=== PATIENT | female | born 1980 | race Caucasian/White ===

== ENCOUNTER 2017-03-12 04:09 | Emergency (ER) | payer SELFPAY ==
[~2017-03-12] VITALS: Ht 154.9 cm; Wt 103.4 kg
[~2017-03-12 04:09] MED LIST: CIPROFLOXACIN500 MG PO; PRILOSEC10 MG PO
[2017-03-12] MEDS ORDERED: OMEPRAZOLE40 MG PO (04:16)
[2017-03-12] MEDS ORDERED: ORTHO-CYCLEN 21 EACH PO (04:17)
[2017-03-12 04:37] LABS: BASO % 0.6 % (0.0-1.0); EOS # 0.1 10*3/uL (0.0-0.4); HEMATOCRIT 40.3 % (37.0-47.0); HEMOGLOBIN 13.5 g/dl (12.0-16.0); LYMPH # 1.2 10*3/uL (1.3-4.4); MEAN CELL VOLUME 88.4 fl (81.0-99.0); MEAN CORPUSCULAR HGB 29.6 pg (27.0-31.0); MEAN CORPUSCULAR HGB CONC 33.5 g/dl (33.0-37.0); MEAN PLATELET VOLUME 9.9 fl (9.6-12.3); MONO # 0.4 10*3/uL (0.1-1.0); MONO % 5.8 % (3.0-9.0); NEUT # 5.1 10*3/uL (2.3-7.9); NEUT % 74.3 % (47.0-73.0); PLATELET COUNT AUTOMATED 151 10*3/uL (130-400); RED BLOOD COUNT 4.56 10*6/uL (4.10-5.10); RED CELL DISTRI WIDTH 12.8 % (0-14.5); WHITE BLOOD COUNT 6.9 10*3/uL (4.8-10.8)
[2017-03-12 04:55] LABS: ALBUMIN 3.3 gm/dl (3.1-4.5); ALKALINE PHOSPHATASE 113 U/L (45-117); BILIRUBIN, DIRECT 0.5 mg/dL (0.0-0.2); BILIRUBIN, TOTAL 0.8 mg/dl (0.2-1.0); BUN 17 mg/dl (7-24); CARBON DIOXIDE 26 mmol/L (21-32); CHLORIDE 109 mmol/L (98-107); EST GLOM FILT AFRICAN AMERICAN > 60 ml/min; GLUCOSE 114 mg/dL (65-99); POTASSIUM 3.7 mmol/L (3.5-5.1); SGOT/AST 86 IU/L (3-35); SGPT/ALT 71 U/L (12-78); SODIUM 143 mmol/L (136-145); TROPONIN I < 0.015 ng/ml (<0.045)
[2017-03-12] MEDS ORDERED: ZOFRAN4 MG PO (06:53)
[2017-03-12] MEDS ORDERED: ZOFRAN ODT4 MG SL (09:01)
[2017-03-12] MEDS ORDERED: NORCO 5-325 TA1 EACH PO (09:01)
== END 2017-03-12 09:04 | disposition home or self-care (01) ==
LOC: ED 04:09
PROVIDERS: Emergency Medicine
DX: K80.50 Calculus of bile duct without cholangitis or cholecystitis without obstruction (principal); K21.9 Gastro-esophageal reflux disease without esophagitis; Z91.040 Latex allergy status; Z79.899 Other long term (current) drug therapy

== ENCOUNTER 2017-10-13 09:30 | Inpatient (IN) | payer SELFPAY ==
[2017-10-13] VITALS (7 sets, daily range): BP systolic 119–151; BP diastolic 63–88
[~2017-10-13] VITALS: Ht 154.9 cm; Wt 103.0 kg
[~2017-10-13 09:30] MED LIST changes: +NORCO 5-325 TA1 EACH PO; +OMEPRAZOLE40 MG PO; +ORTHO-CYCLEN 21 EACH PO; +ZOFRAN ODT4 MG SL; +ZOFRAN4 MG PO
[2017-10-13] MEDS ORDERED: SPRINTEC 35 MCG1 TA1 PO (09:36)
[2017-10-13 10:07] LABS: BASO % 0.3 % (0.0-1.0); EOS % 0.1 % (1.0-4.0); HEMATOCRIT 44.9 % (37.0-47.0); HEMOGLOBIN 15.2 g/dl (12.0-16.0); LYMPH # 1.7 10*3/uL (1.3-4.4); LYMPH % 15.4 % (27.0-41.0); MEAN CELL VOLUME 87.5 fl (81.0-99.0); MEAN CORPUSCULAR HGB 29.6 pg (27.0-31.0); MEAN CORPUSCULAR HGB CONC 33.9 g/dl (33.0-37.0); MEAN PLATELET VOLUME 8.9 fl (9.6-12.3); MONO # 0.4 10*3/uL (0.1-1.0); MONO % 3.7 % (3.0-9.0); NEUT # 8.7 10*3/uL (2.3-7.9); NEUT % 79.8 % (47.0-73.0); PLATELET COUNT AUTOMATED 233 10*3/uL (130-400); RED BLOOD COUNT 5.13 10*6/uL (4.10-5.10); RED CELL DISTRI WIDTH 12.7 % (0-14.5); WHITE BLOOD COUNT 10.9 10*3/uL (4.8-10.8)
[2017-10-13 10:24] LABS: ALBUMIN 3.5 gm/dl (3.1-4.5); ALKALINE PHOSPHATASE 53 U/L (45-117); BUN 14 mg/dl (7-24); CHLORIDE 104 mmol/L (98-107); CREATININE 0.89 mg/dL (0.55-1.02); POTASSIUM 3.6 mmol/L (3.5-5.1); SGOT/AST 12 IU/L (3-35); SGPT/ALT 19 U/L (12-78); SODIUM 139 mmol/L (136-145); TOTAL PROTEIN 7.2 gm/dL (6.4-8.2)
[2017-10-14] VITALS: BP 123/64
[2017-10-14 06:32] LABS: BASO % 0.1 % (0.0-1.0); EOS % 0.2 % (1.0-4.0); LYMPH # 0.9 10*3/uL (1.3-4.4); LYMPH % 6.1 % (27.0-41.0); MEAN CELL VOLUME 89.5 fl (81.0-99.0); MEAN CORPUSCULAR HGB 30.6 pg (27.0-31.0); MEAN CORPUSCULAR HGB CONC 34.1 g/dl (33.0-37.0); MEAN PLATELET VOLUME 9.2 fl (9.6-12.3); MONO # 0.3 10*3/uL (0.1-1.0); MONO % 2.2 % (3.0-9.0); NEUT # 13.7 10*3/uL (2.3-7.9); PLATELET COUNT AUTOMATED 227 10*3/uL (130-400); RED BLOOD COUNT 4.58 10*6/uL (4.10-5.10); RED CELL DISTRI WIDTH 13.1 % (0-14.5); WHITE BLOOD COUNT 15.2 10*3/uL (4.8-10.8)
[2017-10-14 06:59] LABS: BUN 12 mg/dl (7-24); CHLORIDE 108 mmol/L (98-107); CHOLESTEROL 184 mg/dL (<200); CREATININE 0.97 mg/dL (0.55-1.02); FREE T4 1.07 ng/dl (0.76-1.46); HDL CHOLESTEROL 87 mg/dl (40-60); LDL CHOLESTEROL 78 mg/dL (9-159); POTASSIUM 3.8 mmol/L (3.5-5.1); SODIUM 142 mmol/L (136-145); TRIGLYCERIDES 93 mg/dl (<150); VLDL CHOLESTEROL 19 mg/dL (6-40)
[2017-10-14 07:06] LABS: THYROID STIM HORMONE (HS) 0.412 uIU/ml (0.358-4.75)
[2017-10-14 08:00] VITALS: BP 134/80
[2017-10-14 08:35] LABS: VITAMIN D, 25-HYDROXY 29.8 ng/mL (30-100)
[2017-10-14 12:00] VITALS: BP 115/51
[2017-10-14] MEDS ORDERED: DUONEB 3 MG/3 ML3 M1 NEB (13:01)
[2017-10-14] MEDS ORDERED: LEVAQUIN750 M1 PO (13:04)
[2017-10-14] MEDS ORDERED: PREDNISONE10 MG PO (13:04)
[2017-10-14] MEDS ORDERED: NEBULIZER (13:06)
== END 2017-10-14 15:21 | disposition home or self-care (01) | DRG 871 ==
LOC: ED 09:30 → 5E 11:34 → EDHOLD 11:34 → 5E 12:06
PROVIDERS: Nurse Practitioner Family; Student in an Organized Health Care Education/Training Program
DX: A41.9 Sepsis, unspecified organism (principal); J18.9 Pneumonia, unspecified organism; Z68.41 Body mass index [BMI] 40.0-44.9, adult; E66.01 Morbid (severe) obesity due to excess calories; K80.80 Other cholelithiasis without obstruction; I10 Essential (primary) hypertension; K21.9 Gastro-esophageal reflux disease without esophagitis; Z79.899 Other long term (current) drug therapy; Z98.891 History of uterine scar from previous surgery; Z87.891 Personal history of nicotine dependence; Z82.49 Family history of ischemic heart disease and other diseases of the circulatory system; Z83.3 Family history of diabetes mellitus; Z83.6 Family history of other diseases of the respiratory system

== ENCOUNTER → 2024-10-31 | Outpatient (CLI) | payer OTHER ==
[~2024-10-31] MED LIST changes: +DUONEB 3 MG/3 ML3 M1 NEB; +LEVAQUIN750 M1 PO; +NEBULIZER; +PREDNISONE10 MG PO; +PREDNISONE20 M1 PO; +SPRINTEC 35 MCG1 TA1 PO; +TESSALON PERLE100 M1 PO
== END | disposition home or self-care (01) ==
LOC: RAD 16:52
PROVIDERS: ATTEND Chiropractor
DX: M51.379 Other intervertebral disc degeneration, lumbosacral region without mention of lumbar back pain or lower extremity pain (principal)